=== PATIENT | female | born 1995 | race Caucasian/White ===

== ENCOUNTER 2017-04-09 00:45 | Emergency (ER) | payer BC ==
[2017-04-09 01:03] VITALS: RESP 18
[2017-04-09] MEDS ORDERED: NS 1,000 ML IV ONE (01:12)
[2017-04-09] MEDS ORDERED: LORazepam 2 MG/ML INJ IVP ONE (01:13)
--- NOTE | 2017-04-09 01:14 | EDPHY ---
H & P Stated Complaint: Nausea/vomiting/anxiety/shakes/loss of weight HPI/ROS: HPI CHIEF COMPLAINT: Anxiety, panic attack, weight loss, lightheadedness, generalized weakness HISTORY OF PRESENT ILLNESS: Patient is a 21-year-old female she presents emergency room at 1 o'clock in the morning with multitude of complaints. She states for the past 5 days she has been feeling more anxious and having anxiety attacks additionally she reports lightheadedness. Poor sleep. Additionally she reports weight loss. She states that she is fatigued. She reports that when she eats to takes a lot of energy to consume her food and she gets tired after eating. She does not vomit. She denies any specific area of pain. She denies diarrhea or vomiting. Denies fever. Does complain of anxiety. Global weakness. She states she has had this happen to her one other time and she is referred to Gastroenterology for nausea she had a normal EGD and colonoscopy she reports. On asked her what main reason they brought her into the emergency room at 1 o'clock in the morning with 5 days of symptoms she states that the main complaint is anxiety and generalized weakness Past Medical History: Anxiety, depression, disc disease of her back Past Surgical History: No recent surgery Social History: Smokes tobacco, marijuana, denies other illicit drugs or alcohol. Family History: Noncontributory ROS REVIEW OF SYSTEMS: A comprehensive 10 point review of systems is otherwise negative aside from elements mentioned in the history of present illness. Exam Constitutional appears extremely anxious, hyperventilating, appears nontoxic, triage nursing summary reviewed, vital signs reviewed, awake/alert. Eyes normal conjunctivae and sclera, EOMI, PERRLA. HENT normal inspection, atraumatic, moist mucus membranes, no epistaxis, neck supple/ no meningismus, no raccoon eyes. Respiratory hyperventilating, clear to auscultation bilaterally, normal breath sounds, no respiratory distress, no wheezing. Cardiovascular tachycardic, regular rhythm, no murmur, no edema, distal pulses normal. Gastrointestinal soft, non-tender, no rebound, no guarding, normal bowel sounds, no distension, no pulsatile mass. Genitourinary no CVA tenderness. Musculoskeletal no midline vertebral tenderness, full range of motion, no calf swelling, no tenderness of extremities, no meningismus, good pulses, neurovascularly intact. Skin pink, warm, & dry, no rash, skin atraumatic. Neurologic awake, alert and oriented x 3, AAOx3, moves all 4 extremities equally, motor intact, sensory intact, CN II-XII intact, normal cerebellar, normal vision, normal speech. Psychiatric normal mood/affect. Heme/Lymph/Immune no lymphadenopathy. Differential Diagnosis: Includes but is not limited to in a particular order electrolyte disturbance, dehydration, acute anxiety attack, panic attack, depression, thyroid disease, , infection Medical Decision Making: Plan for this patient IV establishment IV fluid bolus 1 L normal saline, IV Ativan 1 mg for acute anxiety, check blood work including electrolytes, thyroid, mono, EKG due to tachycardia, and re-evaluate. Check urinalysis, test and drug screen. Re-evaluation: EKG interpretation by me on record in [employer] system. Impression time of EKG 1:19 a.m., sinus rhythm rate of 82. No signs of cardiac arrhythmia. No acute ischemia on this EKG. Unremarkable EKG. 0322: Re-evaluation at this time. Blood work has been reviewed is unremarkable. She has normal electrolytes, drug screen positive for marijuana. EKG is nonischemic. Negative troponin. I went over all this with her I spent extensive time closed 30 min at the bedside discussing her workup and evaluation and symptoms. I do greatly suggest that she follows up with primary care doctor as well as mental health for anxiety and possibly depression. I think this is the source of her symptoms. I have not found any acute medical condition this evening. After lengthy discussion with her and her boyfriend at bedside the patient states to me that I am not the 1st physician to talk to her about her anxiety her mom is additionally a nurse and has suggested that she speaks to her primary care doctor or mental health provider about her anxiety/ depression. This evening she did received IV Ativan did feel slightly better. She denies wanting to hurt herself or anybody else. She denies being suicidal. I have no indication to place her on M1 hold. I do think she has bad anxiety and would recommend close follow-up with her primary care doctor and mental health evaluate her. She understands. Additionally I did give her return precautions. She understands if she starts feeling more depressed or wanting to hurt herself or anybody else she should return emergency room. Her boyfriend is at bedside during this conversation as well. They would like to go home. They are agreeable this plan. Source: Patient - Personal History LMP (Females 10-55): 8-14 Days Ago Current Tetanus Diphtheria and Acellular Pertussis (TDAP): Unsure - Medical/Surgical History Hx Asthma: No Hx Chronic Respiratory Disease: No Hx Diabetes: No Hx Cardiac Disease: No Hx Renal Disease: No Hx Cirrhosis: No Hx Alcoholism: No Hx HIV/AIDS: No Hx Splenectomy or Spleen Trauma: No Other PMH: degenerative disc disease, in work up for weight loss, and neuropathy. - Social History Smoking Status: Current every day smoker Constitutional: Initial Vital Signs Temperature (C) 37.2 C 04/09/17 00:51 Heart Rate 112 H 04/09/17 00:51 Respiratory Rate 18 04/09/17 00:51 Blood Pressure 138/95 H 04/09/17 00:51 O2 Sat (%) 97 04/09/17 00:51 O2 Delivery Mode Room Air Allergies/Adverse Reactions: amoxicillin Allergy (Verified 04/09/17 00:51) azithromycin [From Zithromax] Allergy (Verified 04/09/17 00:50) methylprednisolone Allergy (Verified 04/09/17 00:50) Home Medications: Medication Instructions Recorded Ibuprofen 04/09/17 Medical Decision Making - Data Points Laboratory Results: Laboratory Results 04/09/17 01:26 04/09/17 01:26 04/09/17 04/09/17 04/09/17 02:00 01:26 01:26 WBC RBC Hgb Hct MCV MCH MCHC RDW Plt Count MPV Neut % (Auto) Lymph % (Auto) [place] % (Auto) Eos % (Auto) Baso % (Auto) Nucleat RBC Rel Count Absolute Neuts (auto) Absolute Lymphs (auto) Absolute Monos (auto) Absolute Eos (auto) Absolute Basos (auto) Absolute Nucleated RBC Immature Gran % Immature Gran # PT INR APTT Sodium 144 mEq/L mEq/L (134-144) Potassium 3.6 mEq/L mEq/L (3.5-5.2) Chloride 104 mEq/L mEq/L (97-110) Carbon Dioxide 23 mEq/l mEq/l (22-31) Anion Gap 17 mEq/L H mEq/L (8-16) BUN 11 mg/dL mg/dL (7-23) Creatinine 0.7 mg/dL mg/dL (0.6-1.0) Estimated GFR > 60 Glucose 110 mg/dL H mg/dL (70-100) Calcium 10.2 mg/dL mg/dL (8.5-10.4) Magnesium 2.1 mg/dL mg/dL (1.6-2.3) Total Bilirubin 0.4 mg/dL mg/dL (0.1-1.4) Conjugated Bilirubin 0.0 mg/dL mg/dL (0.0-0.5) Unconjugated Bilirubin 0.4 mg/dL mg/dL (0.0-1.1) AST 18 IU/L IU/L (14-46) ALT 26 IU/L IU/L (9-52) Alkaline Phosphatase 78 IU/L IU/L (38-126) Creatine Kinase 82 IU/L IU/L (0-156) CK-MB (CK-2) Fraction 0.62 ng/mL ng/mL (0.00-4.55) Troponin I < 0.012 ng/mL ng/mL (0.000-0.034) Total Protein 7.6 g/dL g/dL (6.3-8.2) Albumin 4.5 g/dL g/dL (3.5-5.0) Lipase 63 IU/L IU/L (23-300) TSH 0.606 uIU/mL uIU/mL (0.465-4.680) Beta HCG, Qual NEGATIVE Urine Color YELLOW Urine Appearance CLEAR Urine pH 5.5 (5.0-7.5) Ur Specific [place] <= 1.005 (1.002-1.030) Urine Protein NEGATIVE (NEGATIVE) Urine Ketones NEGATIVE (NEGATIVE) Urine Blood NEGATIVE (NEGATIVE) Urine Nitrate NEGATIVE (NEGATIVE) Urine Bilirubin NEGATIVE (NEGATIVE) Urine Urobilinogen 0.2 EU EU (0.2-1.0) Ur Leukocyte Esterase NEGATIVE (NEGATIVE) Urine Glucose NEGATIVE (NEGATIVE) Urine Opiates Screen NEGATIVE (NEGATIVE) Urine Barbiturates NEGATIVE (NEGATIVE) Ur Phencyclidine Scrn NEGATIVE (NEGATIVE) Ur Amphetamine Screen NEGATIVE (NEGATIVE) U Benzodiazepines Scrn NEGATIVE (NEGATIVE) Urine Cocaine Screen NEGATIVE (NEGATIVE) U Marijuana (THC) Screen NON-NEGATIVE H (NEGATIVE) Monoscreen NEGATIVE (NEGATIVE) 04/09/17 04/09/17 01:26 01:26 WBC 5.47 10^3/uL 10^3/uL (3.80-9.50) RBC 4.82 10^6/uL 10^6/uL (4.18-5.33) Hgb 15.0 g/dL g/dL (12.6-16.3) Hct 42.0 % % (38.0-47.0) MCV 87.1 fL fL (81.5-99.8) MCH 31.1 pg pg (27.9-34.1) MCHC 35.7 g/dL g/dL (32.4-36.7) RDW 11.5 % % (11.5-15.2) Plt Count 287 10^3/uL 10^3/uL (150-400) MPV 9.5 fL fL (8.7-11.7) Neut % (Auto) 53.3 % % (39.3-74.2) Lymph % (Auto) 34.4 % % (15.0-45.0) [place] % (Auto) 8.6 % % (4.5-13.0) Eos % (Auto) 2.4 % % (0.6-7.6) Baso % (Auto) 0.9 % % (0.3-1.7) Nucleat RBC Rel Count 0.0 % % (0.0-0.2) Absolute Neuts (auto) 2.92 10^3/uL 10^3/uL (1.70-6.50) Absolute Lymphs (auto) 1.88 10^3/uL 10^3/uL (1.00-3.00) Absolute Monos (auto) 0.47 10^3/uL 10^3/uL (0.30-0.80) Absolute Eos (auto) 0.13 10^3/uL 10^3/uL (0.03-0.40) Absolute Basos (auto) 0.05 10^3/uL 10^3/uL (0.02-0.10) Absolute Nucleated RBC 0.00 10^3/uL 10^3/uL (0-0.01) Immature Gran % 0.4 % % (0.0-1.1) Immature Gran # 0.02 10^3/uL 10^3/uL (0.00-0.10) PT 13.5 SEC SEC (12.0-15.0) INR 1.04 (0.83-1.16) APTT 29.2 SEC SEC (23.0-38.0) Sodium Potassium Chloride Carbon Dioxide Anion Gap BUN Creatinine Estimated GFR Glucose Calcium Magnesium Total Bilirubin Conjugated Bilirubin Unconjugated Bilirubin AST ALT Alkaline Phosphatase Creatine Kinase CK-MB (CK-2) Fraction Troponin I Total Protein Albumin Lipase TSH Beta HCG, Qual Urine Color Urine Appearance Urine pH Ur Specific [place] Urine Protein Urine Ketones Urine Blood Urine Nitrate Urine Bilirubin Urine Urobilinogen Ur Leukocyte Esterase Urine Glucose Urine Opiates Screen Urine Barbiturates Ur Phencyclidine Scrn Ur Amphetamine Screen U Benzodiazepines Scrn Urine Cocaine Screen U Marijuana (THC) Screen Monoscreen Medications Given: Discontinued Medications Sodium Chloride (Ns) 1,000 mls @ 0 mls/hr IV EDNOW ONE; Wide Open PRN Reason: Protocol Stop: 04/09/17 01:13 Last Admin: 04/09/17 01:37 Dose: 1,000 mls Lorazepam (Ativan Injection) 1 mg IVP EDNOW ONE Stop: 04/09/17 01:14 Last Admin: 04/09/17 01:36 Dose: 1 mg Departure - Departure Disposition: Home, Routine, Self-Care Clinical Impression: Anxiety Condition: Good Instructions: Acute Nausea and Vomiting (ED), Near Syncope (ED), Anxiety (ED) Additional Instructions: 1. I do recommend that you follow up with her primary care doctor. 2. I also would recommend talking to a mental health counselor about your anxiety 3. Return to the emergency room if you have worsening symptoms questions or concerns.
--- NOTE | 2017-04-09 01:20 | CPEKG ---
Heart Rate: 82 RR Interval: 732 P-R Interval: 176 QRSD Interval: 90 QT Interval: 380 QTC Interval: 444 P [place]: 59 QRS [place]: 98 T Wave [place]: 29 EKG Severity - OTHERWISE NORMAL ECG - EKG Impression: SINUS RHYTHM EKG Impression: BORDERLINE RIGHT AXIS DEVIATION Electronically Signed By: Yogesh Saenz 10-Apr-2017 20:28:33
[2017-04-09] MEDS ORDERED: LORazepam 2 MG/ML INJ ONE (01:35)
[2017-04-09 01:36] LABS: % IMMATURE GRANULYOCYTES 0.4 % (0.0-1.1); ABSOLUTE IMMATURE GRANULOCYTES 0.02 10^3/uL (0.00-0.10); ADD DIFF? NO; ADD MORPH? NO; ADD SCAN? NO; ATYPICAL LYMPHOCYTE FLAG 50 (0-99); FRAGMENT RBC FLAG 0 (0-99); LEFT SHIFT FLG 0 (0-99); LIPEMIA HEMOLYSIS FLAG 90 (0-99); MEAN CELL HEMOGLOBIN 31.1 pg (27.9-34.1); MEAN CELL HEMOGLOBIN CONCENTR. 35.7 g/dL (32.4-36.7); MEAN CELL VOLUME 87.1 fL (81.5-99.8); MEAN PLATELET VOLUME 9.5 fL (8.7-11.7); PLATELET CLUMPS FLAG 0 (0-99); PLATELET COUNT 287 10^3/uL (150-400); RED BLOOD CELL COUNT 4.82 10^6/uL (4.18-5.33); RED CELL DISTRIBUTION WIDTH 11.5 % (11.5-15.2)
[2017-04-09 01:47] LABS: INR 1.04 (0.83-1.16); PROTIME(PATIENT) 13.5 SEC (12.0-15.0)
[2017-04-09 01:48] LABS: APTT 29.2 SEC (23.0-38.0)
[2017-04-09 01:50] LABS: ALANINE AMINOTRANSFERASE 26 IU/L (9-52); ALBUMIN 4.5 g/dL (3.5-5.0); ALKALINE PHOSPHATASE 78 IU/L (38-126); ANION GAP 17 mEq/L (8-16); ASPARTATE AMINOTRANSFERASE 18 IU/L (14-46); BHCG-QUALITATIVE NEGATIVE; BILIRUBIN,TOTAL 0.4 mg/dL (0.1-1.4); BILIRUBIN-UNCONJUGATED 0.4 mg/dL (0.0-1.1); CALCIUM 10.2 mg/dL (8.5-10.4); CARBON DIOXIDE 23 mEq/l (22-31); CHLORIDE 104 mEq/L (97-110); CREATININE 0.7 mg/dL (0.6-1.0); GLOMERULAR FILTRATION RATE > 60; GLUCOSE 110 mg/dL (70-100); MAGNESIUM 2.1 mg/dL (1.6-2.3); POTASSIUM 3.6 mEq/L (3.5-5.2); SODIUM 144 mEq/L (134-144); TOTAL PROTEIN 7.6 g/dL (6.3-8.2)
[2017-04-09 01:51] LABS: MONO TEST NEGATIVE (NEGATIVE)
[2017-04-09 02:04] LABS: CREATINE KINASE-MB FRACTION 0.62 ng/mL (0.00-4.55); TROPONIN I < 0.012 ng/mL (0.000-0.034)
[2017-04-09 02:21] LABS: COLOR YELLOW; LEUKOCYTE ESTERASE,URINE NEGATIVE (NEGATIVE); NITRITE,URINE NEGATIVE (NEGATIVE); PH,URINE 5.5 (5.0-7.5)
[2017-04-09 04:01] VITALS: BP 128/71; PULSE 98; TEMP 98.6; O2SAT 96
== END 2017-04-09 03:59 | disposition home or self-care (01) ==
LOC: CED 00:45
DX: F41.9 Anxiety disorder, unspecified (principal); E86.9 Volume depletion, unspecified; F17.200 Nicotine dependence, unspecified, uncomplicated
CPT/HCPCS: 80048-PO; 80076-PO; 80307-PO; 81003-PO; 82550-PO; 82553-PO; 83690-PO; 83735-PO; 84443-PO; 84484-PO; 84703-PO; 85025-PO; 85610-PO; 85730-PO; 86308-PO; 96374; J2060

== ENCOUNTER → 2017-06-01 | Outpatient (CLI) | payer BC | LOC: CIMAGING 12:10 | PROVIDERS: ATTEND Family Medicine | DX: R10.31 Right lower quadrant pain (principal); S39.011A Strain of muscle, fascia and tendon of abdomen, initial encounter | CPT/HCPCS: 76700-PO ==